=== PATIENT | male | born 1955 | race Caucasian/White ===

== ENCOUNTER 2023-05-03 10:12 | Inpatient (IN) | payer MEDICARE, OTHER ==
[~2023-05-03] VITALS: Ht 170.2 cm; Wt 94.3 kg
[~2023-05-03 10:12] MED LIST: ASPIRIN81 MG PO; AUGMENTIN 500-1 EACH PO; COQ-10100 MG; CRESTOR10 MG PO; FISH OIL 1,0001 EAC7; FLOMAX0.4 MG PO; K2-D3 5000 901 EACH; PROVIGIL PO; TESTOSTERO200 MG/11
[2023-05-03 11:12] LABS: BASOPHILS # (AUTO) 0.1 (0.0-0.1); BASOPHILS % 0.9 % (0.0-1.0); EOSINOPHILS # (AUTO) 0.3 (0.0-0.4); EOSINOPHILS % 3.9 % (0.0-6.0); HEMATOCRIT 44.8 % (38.2-49.6); LYMPHOCYTES # (AUTO) 1.6 (1.0-3.2); LYMPHOCYTES % 19.6 % (18.0-39.1); MEAN CORPUSCULAR HEMOGLOBIN 28.9 pg (28-32); MEAN CORPUSCULAR HGB CONC 35.7 g/dL (31-35); MONOCYTES # (AUTO) 0.4 (0.2-0.8); MONOCYTES % 5.4 % (4.4-11.3); NEUTROPHILS # (AUTO) 5.5 (2.1-6.9); NEUTROPHILS % 69.2 % (38.7-80.0); PLATELET COUNT 200 x10e3/uL (140-360); RED BLOOD COUNT 5.53 x10e6/uL (4.3-5.7); RED CELL DISTRIBUTION WIDTH 12.9 % (11.7-14.4); WHITE BLOOD COUNT 7.94 x10e3/uL (4.8-10.8)
[2023-05-03] MEDS: CEFTRIAXONE 1 GM VIAL ONE (11:25)
[2023-05-03] MEDS: SODIUM CHLORIDE 0.9% 1000ML 1,000 ML ONE (11:25)
[2023-05-03] MEDS: GENTAMICIN 80MG/NS 100 ML 200 ML IV ONE (11:25)
[2023-05-03 11:28] LABS: CALCIUM 9.2 mg/dL (8.4-10.2); CREATININE, SERUM 0.79 mg/dL (0.72-1.25)
[2023-05-03] MEDS ORDERED: IOPAMIDOL 610MG/1ML 300 MG/ML VIAL IV ONE (11:55)
[2023-05-03] MEDS ORDERED: FENTANYL CITRATE/PF 100MCG/2 ML INJ ONE (12:02)
[2023-05-03] MEDS ORDERED: PROPOFOL IV EMULSION 10 MG/ML 20 ML VIAL ONE (13:08)
[2023-05-03] MEDS ORDERED: SEVOFLURANE INHAL SOLN 250 ML PEN BTL ONE (13:08)
[2023-05-03] MEDS ORDERED: DEXAMETHASONE SOD PHOS INJ 4 MG/ML SDV ONE (13:08)
[2023-05-03] MEDS ORDERED: LIDOCAINE HCL 2% LOCAL INJ 5 ML SDV VIAL INJ ONE (13:08)
[2023-05-03] MEDS ORDERED: ONDANSETRON HCL INJ 2MG/ML 2ML 2 MG/ML VIAL ONE (13:08)
[2023-05-03] MEDS: FENTANYL CITRATE/PF 100MCG/2 ML INJ ONE (14:21)
[2023-05-03 14:44] LABS: BASOPHILS # (AUTO) 0.1 (0.0-0.1); BASOPHILS % 0.5 % (0.0-1.0); EOSINOPHILS # (AUTO) 0.2 (0.0-0.4); EOSINOPHILS % 1.8 % (0.0-6.0); HEMATOCRIT 44.5 % (38.2-49.6); HEMOGLOBIN 15.1 g/dL (14.0-18.0); LYMPHOCYTES # (AUTO) 1.7 (1.0-3.2); LYMPHOCYTES % 12.5 % (18.0-39.1); MEAN CORPUSCULAR HEMOGLOBIN 28.7 pg (28-32); MEAN CORPUSCULAR HGB CONC 33.9 g/dL (31-35); MEAN CORPUSCULAR VOLUME 84.4 fL (81-99); MONOCYTES # (AUTO) 0.3 (0.2-0.8); MONOCYTES % 1.9 % (4.4-11.3); NEUTROPHILS % 82.1 % (38.7-80.0); PLATELET COUNT 197 x10e3/uL (140-360); RED BLOOD COUNT 5.27 x10e6/uL (4.3-5.7); RED CELL DISTRIBUTION WIDTH 13.1 % (11.7-14.4); WHITE BLOOD COUNT 13.39 x10e3/uL (4.8-10.8)
[2023-05-03 15:02] LABS: CALCIUM 8.2 mg/dL (8.4-10.2); CREATININE, SERUM 0.77 mg/dL (0.72-1.25)
[2023-05-03 15:34] VITALS: BP 125/64; PULSE 74; RESP 17; TEMP 98.1; O2SAT 100
[2023-05-03 15:35] VITALS: BP 125/64; PULSE 74; RESP 17; TEMP 98.1; O2SAT 100
[2023-05-03 15:44] VITALS: BP 125/64; PULSE 74; RESP 17; TEMP 98.1; O2SAT 100
[2023-05-03 15:45] VITALS: BP 125/64; PULSE 74; RESP 17; TEMP 98.1; O2SAT 100
[2023-05-03] MEDS: PHENAZOPYRIDINE HCL 100 MG TAB PO PRN (16:05)
[2023-05-03] MEDS: ACETAMINOPHEN/CODEINE 300MG - 30MG TAB PO PRN (16:06)
[2023-05-03] MEDS: SODIUM CHLORIDE 0.9% 1000ML 1,000 ML IV SCH (16:07)
[2023-05-03] MEDS: TAMSULOSIN HCL 0.4 MG CAP PO SCH (16:12)
[2023-05-03] MEDS: ONDANSETRON HCL INJ 2MG/ML 2ML 2 MG/ML VIAL IV PRN (16:27)
[2023-05-03] MEDS ORDERED: AMOXICILLIN/CLAVULANATE K 500 MG TAB PO SCH (17:00)
[2023-05-03 20:00] VITALS: BP 111/65; PULSE 86; RESP 18; TEMP 98.8; O2SAT 96
[2023-05-03] MEDS: SIMVASTATIN 20 MG TAB PO SCH (20:12)
[2023-05-03 21:00] VITALS: BP 111/65; PULSE 86; RESP 18; TEMP 98.8; O2SAT 96
[2023-05-04] VITALS (13 sets, daily range): BP systolic 92–114; BP diastolic 48–72; PULSE 70–98; RESP 14–19; TEMP 97.6–98.3; O2SAT 96–100
[2023-05-04 06:51] LABS: BASOPHILS % 0.3 % (0.0-1.0); EOSINOPHILS # (AUTO) 0.1 (0.0-0.4); HEMATOCRIT 31.1 % (38.2-49.6); LYMPHOCYTES # (AUTO) 1.8 (1.0-3.2); LYMPHOCYTES % 15.1 % (18.0-39.1); MEAN CORPUSCULAR HEMOGLOBIN 28.4 pg (28-32); MEAN CORPUSCULAR HGB CONC 33.8 g/dL (31-35); MEAN CORPUSCULAR VOLUME 84.1 fL (81-99); MONOCYTES % 8.6 % (4.4-11.3); NEUTROPHILS # (AUTO) 8.7 (2.1-6.9); NEUTROPHILS % 73.9 % (38.7-80.0); PLATELET COUNT 198 x10e3/uL (140-360); RED CELL DISTRIBUTION WIDTH 13.1 % (11.7-14.4); WHITE BLOOD COUNT 11.79 x10e3/uL (4.8-10.8)
[2023-05-04 06:59] LABS: HEMOGLOBIN 10.5 g/dL (14.0-18.0)
[2023-05-04 07:35] LABS: ANION GAP 13.2 mmol/L (8-16); CALCIUM 7.5 mg/dL (8.4-10.2); CREATININE, SERUM 0.99 mg/dL (0.72-1.25); POTASSIUM 4.2 mmol/L (3.5-5.1)
[2023-05-04] MEDS: SODIUM CHLORIDE 0.9% 1000ML 1,000 ML IV ONE (07:45)
[2023-05-04 12:41] LABS: BASOPHILS # (AUTO) 0.1 (0.0-0.1); BASOPHILS % 0.5 % (0.0-1.0); EOSINOPHILS # (AUTO) 0.3 (0.0-0.4); EOSINOPHILS % 2.6 % (0.0-6.0); HEMATOCRIT 30.7 % (38.2-49.6); HEMOGLOBIN 10.8 g/dL (14.0-18.0); LYMPHOCYTES # (AUTO) 2.1 (1.0-3.2); LYMPHOCYTES % 19.4 % (18.0-39.1); MEAN CORPUSCULAR HEMOGLOBIN 29.3 pg (28-32); MEAN CORPUSCULAR HGB CONC 35.2 g/dL (31-35); MEAN CORPUSCULAR VOLUME 83.2 fL (81-99); MONOCYTES # (AUTO) 0.7 (0.2-0.8); NEUTROPHILS # (AUTO) 7.6 (2.1-6.9); NEUTROPHILS % 70.3 % (38.7-80.0); PLATELET COUNT 178 x10e3/uL (140-360); RED BLOOD COUNT 3.69 x10e6/uL (4.3-5.7); RED CELL DISTRIBUTION WIDTH 13.2 % (11.7-14.4); WHITE BLOOD COUNT 10.78 x10e3/uL (4.8-10.8)
[2023-05-04] MEDS: ACETAMINOPHEN 1000 MG/100 ML IV PRN (14:41)
[2023-05-04] MEDS: ONDANSETRON HCL INJ 2MG/ML 2ML 2 MG/ML VIAL IV PRN (14:41)
[2023-05-04] MEDS: SOLIFENACIN SUCCINATE 5 MG TAB PO SCH (16:59)
[2023-05-04] MEDS: FAMOTIDINE 20 MG TAB PO SCH (17:00)
[2023-05-04] MEDS: SENNA-S TABLET PO SCH (17:57)
[2023-05-04] MEDS: CALCIUM CARBONATE 500 MG CHEWABLE TABS PO SCH (20:03)
[2023-05-05] VITALS (21 sets, daily range): BP systolic 89–128; BP diastolic 48–66; PULSE 63–102; RESP 12–28; TEMP 97.8–99; O2SAT 95–100
[2023-05-05 05:34] LABS: BASOPHILS # (AUTO) 0.1 (0.0-0.1); BASOPHILS % 0.5 % (0.0-1.0); EOSINOPHILS # (AUTO) 0.4 (0.0-0.4); EOSINOPHILS % 3.5 % (0.0-6.0); HEMATOCRIT 30.4 % (38.2-49.6); HEMOGLOBIN 10.2 g/dL (14.0-18.0); LYMPHOCYTES # (AUTO) 2.6 (1.0-3.2); LYMPHOCYTES % 23.9 % (18.0-39.1); MEAN CORPUSCULAR HEMOGLOBIN 28.5 pg (28-32); MEAN CORPUSCULAR HGB CONC 33.6 g/dL (31-35); MEAN CORPUSCULAR VOLUME 84.9 fL (81-99); MONOCYTES # (AUTO) 0.9 (0.2-0.8); MONOCYTES % 8.6 % (4.4-11.3); NEUTROPHILS # (AUTO) 6.6 (2.1-6.9); NEUTROPHILS % 62.1 % (38.7-80.0); PLATELET COUNT 193 x10e3/uL (140-360); RED BLOOD COUNT 3.58 x10e6/uL (4.3-5.7); RED CELL DISTRIBUTION WIDTH 13.2 % (11.7-14.4); WHITE BLOOD COUNT 10.69 x10e3/uL (4.8-10.8)
[2023-05-05 05:51] LABS: ANION GAP 12.2 mmol/L (8-16); CALCIUM 8.2 mg/dL (8.4-10.2); CREATININE, SERUM 0.85 mg/dL (0.72-1.25); POTASSIUM 4.2 mmol/L (3.5-5.1)
[2023-05-05] MEDS: ACETAMINOPHEN 325 MG TAB PO PRN (11:30)
[2023-05-05] MEDS: DIPHENHYDRAMINE HCL 25 MG CAP PO PRN ×2 (11:30→21:20)
[2023-05-05] MEDS: IRON SUCROSE 100 MG in SODIUM CHLORIDE 0.9% 100 ML IV SCH (12:26)
[2023-05-05] MEDS: SODIUM CHLORIDE 0.9% 250ML 250 ML IV ONE (20:02)
[2023-05-06] VITALS (10 sets, daily range): BP systolic 113–150; BP diastolic 55–84; PULSE 71–95; RESP 17–19; TEMP 97.5–99; O2SAT 95–100
[2023-05-06 05:22] LABS: BASOPHILS # (AUTO) 0.1 (0.0-0.1); BASOPHILS % 0.7 % (0.0-1.0); EOSINOPHILS # (AUTO) 0.4 (0.0-0.4); EOSINOPHILS % 4.3 % (0.0-6.0); HEMATOCRIT 31.2 % (38.2-49.6); HEMOGLOBIN 10.3 g/dL (14.0-18.0); LYMPHOCYTES # (AUTO) 2.4 (1.0-3.2); LYMPHOCYTES % 23.3 % (18.0-39.1); MEAN CORPUSCULAR HEMOGLOBIN 28.4 pg (28-32); MONOCYTES # (AUTO) 0.9 (0.2-0.8); MONOCYTES % 8.6 % (4.4-11.3); NEUTROPHILS # (AUTO) 6.1 (2.1-6.9); NEUTROPHILS % 60.8 % (38.7-80.0); PLATELET COUNT 191 x10e3/uL (140-360); RED BLOOD COUNT 3.63 x10e6/uL (4.3-5.7); RED CELL DISTRIBUTION WIDTH 13.2 % (11.7-14.4); WHITE BLOOD COUNT 10.07 x10e3/uL (4.8-10.8)
[2023-05-06 06:02] LABS: ANION GAP 10.9 mmol/L (8-16); CALCIUM 8.9 mg/dL (8.4-10.2); CREATININE, SERUM 0.86 mg/dL (0.72-1.25); POTASSIUM 3.9 mmol/L (3.5-5.1)
[2023-05-06] MEDS: MAGNESIUM HYDROXIDE 30 ML UDC PO PRN (10:30)
[2023-05-06] MEDS ORDERED: ONDANSETRON HCL 4 MG ORAL DISINTEGRATING TAB PO PRN (11:00)
[2023-05-07 03:37] VITALS: BP 113/58; PULSE 76; RESP 18; TEMP 98.6; O2SAT 100
[2023-05-07 06:01] LABS: BASOPHILS # (AUTO) 0.1 (0.0-0.1); BASOPHILS % 0.6 % (0.0-1.0); EOSINOPHILS # (AUTO) 0.3 (0.0-0.4); EOSINOPHILS % 2.9 % (0.0-6.0); HEMATOCRIT 29.7 % (38.2-49.6); LYMPHOCYTES # (AUTO) 1.6 (1.0-3.2); LYMPHOCYTES % 14.9 % (18.0-39.1); MEAN CORPUSCULAR HEMOGLOBIN 28.2 pg (28-32); MEAN CORPUSCULAR HGB CONC 33.7 g/dL (31-35); MEAN CORPUSCULAR VOLUME 83.7 fL (81-99); MONOCYTES # (AUTO) 0.9 (0.2-0.8); MONOCYTES % 8.3 % (4.4-11.3); NEUTROPHILS # (AUTO) 7.8 (2.1-6.9); NEUTROPHILS % 71.5 % (38.7-80.0); PLATELET COUNT 231 x10e3/uL (140-360); RED BLOOD COUNT 3.55 x10e6/uL (4.3-5.7); RED CELL DISTRIBUTION WIDTH 12.9 % (11.7-14.4); WHITE BLOOD COUNT 10.89 x10e3/uL (4.8-10.8)
[2023-05-07 06:37] LABS: ANION GAP 13.7 mmol/L (8-16); CALCIUM 9.3 mg/dL (8.4-10.2); CREATININE, SERUM 0.83 mg/dL (0.72-1.25); POTASSIUM 3.7 mmol/L (3.5-5.1)
[2023-05-07 07:30] VITALS: PULSE 87; RESP 18; O2SAT 98
[2023-05-07 08:00] VITALS: BP 113/58; PULSE 87; RESP 18; TEMP 98.6; O2SAT 98
[2023-05-07 08:14] VITALS: BP 120/63; PULSE 85; RESP 18; TEMP 98.7; O2SAT 96
[2023-05-07 11:36] VITALS: BP 132/71; PULSE 105; RESP 18; TEMP 99.2; O2SAT 99
[2023-05-07] MEDS ORDERED: TYLENOL WITH CODIENE PO (11:51)
== END 2023-05-07 12:25 | disposition home or self-care (01) | DRG 713 ==
LOC: OR 10:12 → PACU V 13:10 → MED/SURG3 15:05 → ICU 05-04 07:59 → MED/SURG2 05-05 17:52
PROVIDERS: ADMIT Internal Medicine; ATTEND Internal Medicine
PROC: BT101ZZ Fluoroscopy of Bladder using Low Osmolar Contrast (ICD-10-PCS; 2023-05-03)
PROC: 0V508ZZ Destruction of Prostate, Via Natural or Artificial Opening Endoscopic (ICD-10-PCS; principal; 2023-05-03 12:00)
PROC: BT141ZZ Fluoroscopy of Kidneys, Ureters and Bladder using Low Osmolar Contrast (ICD-10-PCS; 2023-05-03 12:00)
DX: N40.1 Benign prostatic hyperplasia with lower urinary tract symptoms (principal); D62 Acute posthemorrhagic anemia; N13.8 Other obstructive and reflux uropathy; R31.9 Hematuria, unspecified; R33.8 Other retention of urine; N39.41 Urge incontinence; R39.11 Hesitancy of micturition; N32.89 Other specified disorders of bladder; N28.82 Megaloureter; R39.14 Feeling of incomplete bladder emptying; R35.1 Nocturia; R39.12 Poor urinary stream; N52.9 Male erectile dysfunction, unspecified; E78.5 Hyperlipidemia, unspecified; I10 Essential (primary) hypertension; G47.33 Obstructive sleep apnea (adult) (pediatric); Z87.440 Personal history of urinary (tract) infections; I25.10 Atherosclerotic heart disease of native coronary artery without angina pectoris; E66.01 Morbid (severe) obesity due to excess calories; Z68.32 Body mass index [BMI] 32.0-32.9, adult; Z79.899 Other long term (current) drug therapy; Z79.82 Long term (current) use of aspirin
CPT/HCPCS: 36415; 71046; 74420; 80048; 83735; 85025; 86850; 86900; 86920; 88305; 94799; C1758; J0696; J1100; J1580; J1756; J2001; J2405; J7030; J7050